=== PATIENT | female | born 1965 | race Hispanic/Latino ===

== ENCOUNTER 2018-11-24 04:32 | Emergency (ER) | payer OTHER ==
[2018-11-24] MEDS ORDERED: KETOROLAC TROMETHAMINE 60 MG/2 ML VIAL ONE (04:58)
[2018-11-24] MEDS ORDERED: HYDROCODONE/ACETAMINOPHEN 10/325 MG TAB ONE (04:58)
== END 2018-11-24 05:55 | disposition home or self-care (01) ==
LOC: EDH 04:32
DX: B02.9 Zoster without complications (principal)
CPT/HCPCS: 96372; 99283; J1885